=== PATIENT | female | born 1965 | race Caucasian/White ===

== ENCOUNTER 2017-03-04 13:19 | Emergency (ER) | payer BC, OTHER ==
[2017-03-04] MEDS ORDERED: Ketorolac Tromethamine 30 MG/ML VIAL ONE (14:54)
== END 2017-03-04 15:04 | disposition home or self-care (01) ==
LOC: ERS 13:19
DX: K04.7 Periapical abscess without sinus (principal); E78.5 Hyperlipidemia, unspecified; E66.9 Obesity, unspecified; I12.9 Hypertensive chronic kidney disease with stage 1 through stage 4 chronic kidney disease, or unspecified chronic kidney disease; N18.3 Chronic kidney disease, stage 3 (moderate); F32.9 Major depressive disorder, single episode, unspecified; F17.210 Nicotine dependence, cigarettes, uncomplicated
CPT/HCPCS: 96372; 99406; J1885

== ENCOUNTER 2017-04-07 03:02 | Emergency (ER) | payer OTHER ==
[2017-04-07] MEDS ORDERED: Ketorolac Tromethamine 60 MG/2 ML VIAL ONE (05:05)
== END 2017-04-07 05:32 | disposition home or self-care (01) ==
LOC: ERS 03:02
DX: M17.0 Bilateral primary osteoarthritis of knee (principal); E66.9 Obesity, unspecified; F41.9 Anxiety disorder, unspecified; F17.210 Nicotine dependence, cigarettes, uncomplicated; Z71.6 Tobacco abuse counseling
CPT/HCPCS: 96372; 99406; J1885

== ENCOUNTER 2017-05-06 12:28 | Inpatient (IN) | payer OTHER ==
[2017-05-06] MEDS ORDERED: Acetaminophen 500 MG TAB ONE (13:19)
[2017-05-06 13:28] LABS: Bilirubin Negative (Negative); Blood, Urine Large (Negative); Clarity TURBID (Clear); Glucose, Urine (Dipstick) Negative (Negative); Leukocyte Large (Negative); Nitrite Positive (Negative); Protein, Urine (Dipstick) 100 mg/dL (Neg-Trace); Specific Gravity, Urine 1.019 (1.002-1.036); pH, Urine 5.5 (5.0-9.0)
[2017-05-06 13:30] LABS: Bacteria/HPF 4+ HPF (None Seen); Hyaline Casts/LPF 4-6 HYALINE CAST LPF (0-3 Hyaline); Pathc Cast-AUWi Flag 1.14 (0-2.49); Squamous Epithelial None Seen HPF (0-3)
[2017-05-06 13:35] LABS: Yeast-AUWi Flag 248.6 (0-25.0)
[2017-05-06 13:43] LABS: RBC/HPF 0-3 HPF (0-3); Yeast-All Forms None Seen HPF (None Seen)
[2017-05-06 13:44] LABS: #Eosinphils 0.1 thou/uL (0.0-0.7); #Monocytes 0.7 thou/uL (0.11-0.59); #Neutrophils 12.6 thou/uL (1.40-6.50); %Basophils 0.1 % (0.0-1.0); %Eosinophils 0.6 % (0.0-10.0); %Lymphocytes 7.2 % (21.0-51.0); %Neutrophils 87.1 % (42.0-75.0); Hemoglobin 14.3 g/dL (12.0-16.0); Mean Corpuscular Hemoglobin 32.8 pg (27.0-31.0); Mean Corpuscular Volume 99.5 fl (81.0-99.0); Mean Platelet Volume 6.5 fL (7.4-10.4); Platelet Count 318 thou/uL (130-400); RBC Distribution Width 12.3 % (11.5-14.5); Red Blood Cell (RBC) Count 4.37 mill/uL (4.20-5.40); White Blood Cell (WBC) Count 14.4 thou/uL (4.8-10.8)
[2017-05-06] MEDS ORDERED: Phenazopyridine HCl 97.5 MG TABLET PO SCH (14:00)
[2017-05-06 14:02] LABS: ALT (SGPT) 19 U/L (8-55); AST (SGOT) 20 U/L (5-34); Albumin 4.3 g/dL (3.5-5.0); Alkaline Phosphatase 104 U/L (40-150); Anion Gap 15 mmol/L (10-20); BUN (Urea Nitrogen) 14 mg/dL (9.8-20.1); Bilirubin, Total 0.4 mg/dL (0.2-1.2); Calc. Creatinine Clearance 0 mL/min (70-130); Calcium 10.1 mg/dL (7.8-10.44); Carbon Dioxide 25 mmol/L (22-29); Chloride 103 mmol/L (98-107); Estimated GFR-MDRD 55; Globulin 3.8 g/dL (2.4-3.5); Glucose 116 mg/dL (70-105); Potassium 3.6 mmol/L (3.5-5.1); Protein, Total 8.1 g/dL (6.0-8.3); Sodium 139 mmol/L (136-145)
--- NOTE | 2017-05-06 14:47 | RAD ---
CHEST ONE VIEW: History: Fever. Comparison: 03-18-16 FINDINGS: Cardiac silhouette is magnified by projection. Pulmonary vasculature is unremarkable. Mediastinum is midline. There is no lobar consolidation or evidence of pneumothorax. IMPRESSION: No active cardiopulmonary abnormalities are demonstrated. POS: [facility]
[2017-05-06] MEDS ORDERED: Acetaminophen 325 MG TAB PO PRN (18:36)
[2017-05-06] MEDS ORDERED: traMADol HCl 50 MG TAB PO PRN ×2 (18:36→22:07)
[2017-05-06] MEDS ORDERED: Guaifenesin DM 100-10/5 ML UDCUP PO PRN (18:36)
[2017-05-06] MEDS ORDERED: cefTRIAXone\\ROCEPHIN 1 GM in Sodium Chloride 0.9% 100 ML IVPB SCH (18:45)
--- NOTE | 2017-05-06 19:01 | HP ---
REASON FOR ADMISSION: Urinary tract infection and fever of 101.7. HISTORY OF PRESENTNG ILLNESS: The patient gives history of having burning urination from the last 4 days. This has been getting worse. She developed suprapubic pain this evening. She is also getting increased frequency of urination to the point that she has become incontinent and dribbles even befo re reaching the bathroom. The patient states she has history of getting recurrent urinary tract infe ctions and the last one she had was in January. She follows up with the primary care physician out of [place], which she cannot recall the name at present. No complaints of constipation, chest monse n or shortness of breath. Had a fever of 101.7 in the ER on arrival. PAST MEDICAL AND SURGICAL HISTORY: Hypertension, dyslipidemia, anxiety disorder, tobacco abuse and c hronic back pain. CURRENT MEDICATIONS: The patient takes Klonopin 3 times daily; Pravachol 40 mg p.o. at bedtime; danish nopril, a small dose daily and Ultram p.r.n. for pain. ALLERGIES: No known drug allergies. PERSONAL HISTORY: Does not abuse alcohol or drugs. She smokes one pack a day. [facility] FAMILY HISTORY: Mother of lung cancer at the age of 67 years. Father was suspected to have men ingitis and in his 50s. REVIEW OF SYSTEMS: The following complete review of systems was negative, unless otherwise mentioned in the HPI or below: Constitutional: Weight loss or gain, ability to conduct usual activities. Skin: Rash, itching. Eyes: Double vision, pain. ENT/Mouth: Nose bleeding, neck stiffness, pain, tenderness. Cardiovascular: Palpitations, dyspnea on exertion, orthopnea. Respiratory: Shortness of breath, wheezing, cough, hemoptysis, fever or night sweats. Gastrointestinal: Poor appetite, abdominal pain, heartburn, nausea, vomiting, constipation, or diarr hea. Genitourinary: Urgency, frequency, dysuria, nocturia. Musculoskeletal: Pain, swelling. Neurologic/Psychiatric: Anxiety, depression. Allergy/Immunologic: Skin rash, bleeding tendency. PHYSICAL EXAMINATION: GENERAL: The patient is a 52-year-old female who is currently not in any acute distress. VITAL SIGNS: Blood pressure 146/70, pulse 120 per minute, respiratory rate 18 per minute, temperatur e 101.9 degrees Fahrenheit and saturating 95% on room air. NECK: Supple. No elevated JVD. HEENT: Eyes: Extraocular muscles intact. Pupils are reacting to light. Oral cavity mucous membran es are dry. No exudates or congestion. CARDIOVASCULAR SYSTEM: S1 and S2 heard. Regular rhythm. RESPIRATORY SYSTEM: Air entry 1+ bilaterally. No rales, rhonchi plus bilateral. ABDOMEN: Soft, bowel sounds heard. Mild tenderness in the suprapubic area, otherwise no rigidity or guarding. There is no CVA angle tenderness. EXTREMITIES: No peripheral edema or calf tenderness. VASCULAR SYSTEM: Peripheral pulses 2+ bilateral. No ischemic ulcerations or gangrene. CENTRAL NERVOUS SYSTEM: No gross focal deficits seen. The patient is alert, awake and oriented well . PSYCHIATRIC SYSTEM: The patient's mood is euthymic. No hallucinations or delusions. LABORATORY AND X-RAY FINDINGS: EKG done shows sinus tachycardia at 122 beats per minute. There is R BBB seen. White count of 14, hemoglobin and hematocrit 14 and 43, platelet count 318 with 87% neutro phils and MCV is 99. Electrolytes are stable. BUN 14, creatinine 1.0 and glucose 116. Liver enzyme s are within normal limits. Albumin is 4.3. UA shows positive nitrite, large leukocyte esterase and greater than 50 wbc's and 4+ bacteria. Influenza A and B antigens are negative. Chest x-ray shows no acute cardiopulmonary abnormalities. CLINICAL IMPRESSION AND PLAN: The patient will be admitted to medical floor for sepsis, urinary trac t infection. She will be placed on ceftriaxone and Levaquin. Ann cultures have been obtained in the ER including blood and urine. In view of recurrent UTIs, we will obtain a CT stone protocol to rule out obstructive uropathy. We will continue her Pravachol, lisinopril, Ultram as before and nicotine patch for her history of tobacco abuse. Continue Klonopin as well for anxiety. Continue to closely monitor her in the medical floor.
[2017-05-06] MEDS ORDERED: cefTRIAXone\\ROCEPHIN 1 GM, Syringe 0.4 ML in Sterile Water 9.6 ML SLOW IVP SCH (20:00)
--- NOTE | 2017-05-06 20:22 | CT ---
ABDOMEN AND PELVIC CT NONCONTRAST: Comparison: 01-20-12 Clinical history: History of obstructive uropathy and recurrent urinary tract infections. FINDINGS: There is abnormal wall thickening of the urinary bladder with perivesicular fat stranding. Punctate n onobstructive left nephrolithiasis is present. No right side urolithiasis evident. Scattered vascular calcification is present. There is fatty infiltration of the liver. The solid abdominal viscera, bow el and vascular system is limited in assessment on the basis of noncontrast technique. No lobar conso lidation or effusion at the imaged lung bases. Osseous structures are non-acute in appearance. Modera te retained fecal material in the colon. IMPRESSION: 1. CT findings indicate cystitis. Correlate with urinary laboratory values. 2. Nonobstructive left nephrolithiasis. 3. Evaluation otherwise limited on basis of noncontrast study. POS: [facility]
[2017-05-06] MEDS ORDERED: clonazePAM 0.5 MG TAB PO SCH ×2 (21:00→22:15)
[2017-05-06] MEDS: Sodium Chloride 0.9% 1,000 ML IV SCH (21:05)
[2017-05-06] MEDS: Pravastatin Sodium 20 MG TAB PO SCH (21:06)
[2017-05-06] MEDS: Nicotine 21 MG PATCH TD SCH (21:06)
[2017-05-06] MEDS: Famotidine 20 MG TAB PO SCH (21:06)
[2017-05-06] MEDS: Docusate 100 MG CAP PO SCH (21:06)
[2017-05-06 21:11] VITALS: BMI 34.0
[2017-05-07] MEDS ORDERED: Loperamide HCl 2 MG CAP PO PRN (01:05)
[2017-05-07] MEDS: traMADol HCl 50 MG TAB PO PRN ×4 (02:28→23:45)
[2017-05-07 04:57] LABS: Band 14 % (5-11); Hemoglobin 11.6 g/dL (12.0-16.0); Lymphocytes 23 % (21-51); MDiff Complete? YES; Mean Corpuscular Hemoglobin 32.8 pg (27.0-31.0); Mean Corpuscular Volume 99.2 fl (81.0-99.0); Mean Platelet Volume 6.7 fL (7.4-10.4); Monocytes 5 % (0-10); Neutrophil 58 % (42-75); Platelet Count 262 thou/uL (130-400); RBC Distribution Width 12.1 % (11.5-14.5); Red Blood Cell (RBC) Count 3.54 mill/uL (4.20-5.40); White Blood Cell (WBC) Count 10.1 thou/uL (4.8-10.8)
[2017-05-07 05:02] LABS: Calcium 8.4 mg/dL (7.8-10.44)
[2017-05-07 05:03] LABS: Anion Gap 11 mmol/L (10-20); BUN (Urea Nitrogen) 9 mg/dL (9.8-20.1); Calc. Creatinine Clearance 141 mL/min (70-130); Carbon Dioxide 23 mmol/L (22-29); Chloride 105 mmol/L (98-107); Estimated GFR-MDRD 79; Glucose 122 mg/dL (70-105); Sodium 136 mmol/L (136-145)
[2017-05-07] MEDS: Famotidine 20 MG TAB PO SCH ×2 (08:30→19:54)
[2017-05-07] MEDS: Lisinopril 2.5 MG TAB PO SCH (08:30)
[2017-05-07] MEDS: Enoxaparin Sodium 40 MG/0.4 ML SYRINGE SC SCH (08:32)
[2017-05-07] MEDS: Docusate 100 MG CAP PO SCH ×2 (08:33→19:54)
[2017-05-07] MEDS ORDERED: Nicotine 21 MG PATCH TD SCH (09:00)
[2017-05-07] MEDS ORDERED: FLU VACC QS2017-18 36 mo. & older 0.5 ML SYRINGE IM ONE (09:00)
--- NOTE | 2017-05-07 12:10 | PDOC.PN ---
- Subjective Encounter Start Date: 05/07/17 Encounter Start Time: 10:00 -: old records requested/rev Patient seen and examined. No new complaints. No overnight events - Objective Resuscitation Status: Resuscitation Status FULL:Full Resuscitation MAR Reviewed: Yes Vital Signs & Weight: Vital Signs (12 hours) Temp Pulse Resp BP BP Pulse Ox 05/07/17 08:30 99 154/94 H 05/07/17 08:00 98.0 F 99 18 96 05/07/17 04:52 98.0 F 99 18 138/74 95 Weight Weight 230 lb I&O: 05/06/17 05/07/17 05/08/17 06:59 06:59 06:59 Intake Total 1820 240 Balance 1820 240 Result Diagrams: 05/07/17 03:58 05/07/17 03:58 Phys Exam - Physical Examination Constitutional: NAD HEENT: PERRLA, moist MMs, sclera anicteric Neck: no JVD, supple Respiratory: no wheezing, no rales, no rhonchi Cardiovascular: RRR, no significant murmur, no rub Gastrointestinal: soft, no distention, positive bowel sounds suprapubic discomfort Musculoskeletal: no edema, pulses present Neurological: non-focal, normal sensation, moves all 4 limbs Psychiatric: normal affect, A&O x 3 Skin: no rash, normal turgor Dx/Plan (1) Sepsis Code(s): A41.9 - SEPSIS, UNSPECIFIED ORGANISM Status: Acute (2) Acute cystitis Code(s): N30.00 - ACUTE CYSTITIS WITHOUT HEMATURIA Status: Acute (3) Anxiety and depression Code(s): F41.8 - OTHER SPECIFIED ANXIETY DISORDERS Status: Chronic (4) Tobacco abuse Code(s): Z72.0 - TOBACCO USE Status: Chronic (5) Obesity (BMI 30.0-34.9) Code(s): E66.9 - OBESITY, UNSPECIFIED Status: Chronic (6) HTN (hypertension) Code(s): I10 - ESSENTIAL (PRIMARY) HYPERTENSION Status: Chronic (7) Dyslipidemia Code(s): E78.5 - HYPERLIPIDEMIA, UNSPECIFIED Status: Chronic - Plan cont current plan of care, continue antibiotics * overall doing well * continue rocephin and levaquin * follow culture result * DC IVF * ambulate as tolerated * counselled to avoid smoking * selected home medication * medication reviewed as below * symptomatic treatment * medication reviewed as below * symptomatic treatment. Review of Systems - Review of Systems ENT: negative: Ear Pain, Ear Discharge, Nose Pain, Nose Discharge, Nose Congestion, Mouth Pain, Mouth Swelling, Throat Pain, Throat Swelling, Other Respiratory: negative: Cough, Dry, Shortness of Breath, Hemoptysis, SOB with Excertion, Pleuritic Pain, Sputum, Wheezing Cardiovascular: negative: chest pain, palpitations, orthopnea, paroxysmal nocturnal dyspnea, edema, light headedness, other Gastrointestinal: negative: Nausea, Vomiting, Abdominal Pain, Diarrhea, Constipation, Melena, Hematochezia, Other Genitourinary: negative: Dysuria, Frequency, Incontinence, Hematuria, Retention , Other Musculoskeletal: negative: Neck Pain, Shoulder Pain, Arm Pain, Back Pain, Hand Pain, Leg Pain, Foot Pain, Other Skin: negative: Rash, Lesions, Calvin, Bruising, Other - Medications/Allergies Allergies/Adverse Reactions: Allergies Allergy/AdvReac Type Severity Reaction Status Date / Time No Known Drug Allergies Allergy Verified 05/06/17 21:17 Medications: Current Medications Acetaminophen (Tylenol) 650 mg PO Q4H PRN PRN Reason: Headache/Fever or Pain Clonazepam (Klonopin) 1 mg PO HS [facility] Docusate Sodium (Colace) 100 mg PO BID [facility] Last Admin: 05/07/17 08:33 Dose: Not Given Enoxaparin Sodium (Lovenox) 40 mg SC 0900 [facility] Last Admin: 05/07/17 08:32 Dose: 40 mg Famotidine (Pepcid) 20 mg PO BID [facility] Last Admin: 05/07/17 08:30 Dose: 20 mg Guaifenesin/Dextromethorphan (Robitussin Dm) 15 ml PO Q4H PRN PRN Reason: Cough Levofloxacin 500 mg/ Device 100 mls @ 100 mls/hr IVPB 2000 [facility] Last Admin: 05/06/17 21:05 Dose: 100 mls Sodium Chloride (Normal Saline 0.9%) 1,000 mls @ 80 mls/hr IV .[id number] [facility] Last Admin: 05/06/17 21:05 Dose: 1,000 mls Ceftriaxone Sodium 1 gm/ (Syringe 0.4 ml/ Sterile Water) 10 mls @ 120 mls/hr SLOW IVP 1600 [facility] Lisinopril (Zestril) 2.5 mg PO DAILY [facility] Last Admin: 05/07/17 08:30 Dose: 2.5 mg Loperamide HCl (Imodium) 2 mg PO PRN PRN PRN Reason: Diarrhea/Loose Stools Nicotine (Nicoderm Patch) 21 mg TD Q24HR [facility] Last Admin: 05/06/17 21:06 Dose: 21 mg Pravastatin Sodium (Pravachol) 20 mg PO HS [facility] Last Admin: 05/06/17 21:06 Dose: 20 mg Tramadol HCl (Ultram) 50 mg PO QIDPRN PRN PRN Reason: Moderate Pain (4-6) Tramadol HCl (Ultram) 100 mg PO QIDPRN PRN PRN Reason: Severe Pain (7-10) Last Admin: 05/07/17 08:28 Dose: 100 mg
[2017-05-07] MEDS: Sodium Chloride 0.9% 1,000 ML IV SCH (12:17)
[2017-05-07] MEDS: clonazePAM 0.5 MG TAB PO SCH (15:26)
[2017-05-07] MEDS ORDERED: cefTRIAXone\\ROCEPHIN 1 GM, Syringe 0.4 ML in Sterile Water 9.6 ML SLOW IVP SCH (16:00)
[2017-05-07] MEDS: Nicotine 21 MG PATCH TD SCH (19:54)
[2017-05-07] MEDS: Pravastatin Sodium 20 MG TAB PO SCH (19:55)
[2017-05-07] MEDS ORDERED: clonazePAM 1 MG TAB PO SCH ×2 (21:00)
[2017-05-07] MEDS ORDERED: Montelukast Sodium 10 mg Tablet PO SCH (21:00)
[2017-05-08] MEDS: clonazePAM 0.5 MG TAB PO SCH (08:20)
[2017-05-08] MEDS: Enoxaparin Sodium 40 MG/0.4 ML SYRINGE SC SCH (08:20)
[2017-05-08] MEDS: Lisinopril 2.5 MG TAB PO SCH (08:20)
[2017-05-08] MEDS: Famotidine 20 MG TAB PO SCH (08:21)
[2017-05-08] MEDS: Docusate 100 MG CAP PO SCH (08:21)
[2017-05-08] MEDS: traMADol HCl 50 MG TAB PO PRN (08:24)
[2017-05-08] MEDS ORDERED: busPIRone HCl 5 MG TAB PO SCH (09:00)
[2017-05-08 09:49] VITALS: TEMP 98.2
--- NOTE | 2017-05-08 10:17 | DIS ---
DATE OF ADMISSION: 05/06/2017 DATE OF DISCHARGE: 05/08/2017 PRIMARY CARE PHYSICIAN: [facility] call admission. DISCHARGE DISPOSITION: Home. PRIMARY DISCHARGE DIAGNOSES: 1. Sepsis. 2. Acute cystitis. SECONDARY DISCHARGE DIAGNOSES: Tobacco abuse disorder, obesity with BMI 34, hypertension, dyslipidem ia, anxiety and depression. PRIMARY PROCEDURE/OPERATION: None. RADIOLOGICAL INVESTIGATION: Chest x-ray normal. Abdomen and pelvis CT scan showed cystitis. SIGNIFICANT LABORATORY: WBC 10.1, hemoglobin 11.6, platelets 262. Sodium 136, potassium 3.0, BUN 9, creatinine 0.77, calcium 8.4. LFTs normal. Urinalysis suggestive of UTI. Urine culture grew E. co li. Blood culture negative, influenza negative. DISCHARGE MEDICATIONS: Buspirone 5 mg p.o. daily, clonazepam 0.5 mg p.o. daily, clonazepam 0.5 mg p. o. b.i.d. lisinopril 2.5 mg p.o. daily, Singulair 10 mg p.o. daily, pravastatin 20 mg p.o. at bedtime , tramadol 100 mg q.i.d. p.r.n. CONTRAINDICATIONS: None. CODE STATUS: FULL CODE. INPATIENT CONSULTANTS: None. ALLERGIES: No known drug allergies. DISCHARGE PLAN: Post hospital, the patient will follow up with primary care physician. HOSPITAL COURSE: A 52-year-old female who was admitted by Dr. Moreno on 05/06/2007. The patien t was admitted for sepsis. Her source of infection was urinary tract infection. Her CT of the abdom en and pelvis showed cystitis. Her urinalysis was consistent with UTI. She was afebrile in the [facility] room and she was meeting sepsis criteria and she was having suprapubic discomfort. The patient was admitted to medical floor, and she was treated with IV fluids, Rocephin, and Levaquin . The patient had significant improvement. Next day, we discontinued the IV fluid and continue with antibiotic therapy. On discharge, based on culture and sensitivity result, we changed to oral cipro floxacin. The patient is going outside for smoking while in hospital despite nicotine patch and that is why we provided counseling to avoid smoking. At this point, the patient is afebrile, tolerating p.o. well and ambulatory. The patient is medicall y stable for discharge on above-mentioned medications. The patient is seen and examined at bedside today. PHYSICAL EXAMINATION: VITAL SIGNS: Currently, temperature 98.2, pulse 101, respiratory rate 18, saturation 97% on room air , blood pressure 151/92, weight 238 pounds. GENERAL: The patient is currently alert, awake, no acute distress. HEAD: Normocephalic, atraumatic. EYES: Pupils round, reactive to light. Extraocular muscles intact. ENT: Oropharynx within normal limits. Moist mucous membranes. No oral lesions. No pharyngeal eryt estefanía, no exudate. NECK: Supple, no JVD, no thyromegaly, no carotid bruit. No jugular venous distention. LUNGS: Clear to auscultation without any rhonchi or rales. CARDIAC: S1, S2 regular without any murmur. ABDOMEN: Soft and benign without any tenderness. EXTREMITIES: No edema. NEUROLOGIC: Nonfocal examination. The patient is medically stable for discharge today.
--- NOTE | 2017-05-08 11:06 | PDOC.PN ---
- Subjective Encounter Start Date: 05/08/17 Encounter Start Time: 10:20 Patient seen and examined. No new complaints. No overnight events - Objective Resuscitation Status: Resuscitation Status FULL:Full Resuscitation MAR Reviewed: Yes Vital Signs & Weight: Vital Signs (12 hours) Temp Pulse Resp BP Pulse Ox 05/08/17 08:00 98.2 F 101 H 18 151/92 H 97 Weight Weight 230 lb I&O: 05/07/17 05/08/17 05/09/17 06:59 06:59 06:59 Intake Total 1820 1292 Balance 1820 1292 Result Diagrams: 05/07/17 03:58 05/07/17 03:58 Phys Exam - Physical Examination Constitutional: NAD HEENT: PERRLA, moist MMs, sclera anicteric Neck: no JVD, supple Respiratory: no wheezing, no rales, no rhonchi Cardiovascular: RRR, no significant murmur, no rub Gastrointestinal: soft, non-tender, no distention, positive bowel sounds Musculoskeletal: no edema, pulses present Neurological: non-focal, normal sensation, moves all 4 limbs Psychiatric: normal affect, A&O x 3 Skin: no rash, normal turgor Dx/Plan (1) Sepsis Code(s): A41.9 - SEPSIS, UNSPECIFIED ORGANISM Status: Acute (2) Acute cystitis Code(s): N30.00 - ACUTE CYSTITIS WITHOUT HEMATURIA Status: Acute (3) Anxiety and depression Code(s): F41.8 - OTHER SPECIFIED ANXIETY DISORDERS Status: Chronic (4) Tobacco abuse Code(s): Z72.0 - TOBACCO USE Status: Chronic (5) Obesity (BMI 30.0-34.9) Code(s): E66.9 - OBESITY, UNSPECIFIED Status: Chronic (6) HTN (hypertension) Code(s): I10 - ESSENTIAL (PRIMARY) HYPERTENSION Status: Chronic (7) Dyslipidemia Code(s): E78.5 - HYPERLIPIDEMIA, UNSPECIFIED Status: Chronic - Plan cont current plan of care, continue antibiotics * medication reviewed as below * symptomatic treatment * see discharge smitha. Review of Systems - Review of Systems ENT: negative: Ear Pain, Ear Discharge, Nose Pain, Nose Discharge, Nose Congestion, Mouth Pain, Mouth Swelling, Throat Pain, Throat Swelling, Other Respiratory: negative: Cough, Dry, Shortness of Breath, Hemoptysis, SOB with Excertion, Pleuritic Pain, Sputum, Wheezing Cardiovascular: negative: chest pain, palpitations, orthopnea, paroxysmal nocturnal dyspnea, edema, light headedness, other Gastrointestinal: negative: Nausea, Vomiting, Abdominal Pain, Diarrhea, Constipation, Melena, Hematochezia, Other Genitourinary: negative: Dysuria, Frequency, Incontinence, Hematuria, Retention , Other Musculoskeletal: negative: Neck Pain, Shoulder Pain, Arm Pain, Back Pain, Hand Pain, Leg Pain, Foot Pain, Other Skin: negative: Rash, Lesions, Calvin, Bruising, Other - Medications/Allergies Allergies/Adverse Reactions: Allergies Allergy/AdvReac Type Severity Reaction Status Date / Time No Known Drug Allergies Allergy Verified 05/06/17 21:17 Medications: Current Medications Acetaminophen (Tylenol) 650 mg PO Q4H PRN PRN Reason: Headache/Fever or Pain Buspirone HCl (Buspar) 5 mg PO DAILY [facility] Last Admin: 05/08/17 08:20 Dose: 5 mg Clonazepam (Klonopin) 0.5 mg PO 0900,1500 [facility] Last Admin: 05/08/17 08:20 Dose: 0.5 mg Clonazepam (Klonopin) 1 mg PO HS [facility] Last Admin: 05/07/17 19:55 Dose: 1 mg Docusate Sodium (Colace) 100 mg PO BID [facility] Last Admin: 05/08/17 08:21 Dose: Not Given Enoxaparin Sodium (Lovenox) 40 mg SC 0900 [facility] Last Admin: 05/08/17 08:20 Dose: 40 mg Famotidine (Pepcid) 20 mg PO BID [facility] Last Admin: 05/08/17 08:21 Dose: 20 mg Guaifenesin/Dextromethorphan (Robitussin Dm) 15 ml PO Q4H PRN PRN Reason: Cough Levofloxacin 500 mg/ Device 100 mls @ 100 mls/hr IVPB 2000 [facility] Last Admin: 05/07/17 19:53 Dose: 100 mls Ceftriaxone Sodium 1 gm/ (Syringe 0.4 ml/ Sterile Water) 10 mls @ 120 mls/hr SLOW IVP 1600 [facility] Last Admin: 05/07/17 17:25 Dose: 10 mls Lisinopril (Zestril) 2.5 mg PO DAILY [facility] Last Admin: 05/08/17 08:20 Dose: 2.5 mg Loperamide HCl (Imodium) 2 mg PO PRN PRN PRN Reason: Diarrhea/Loose Stools Montelukast Sodium (Singulair) 10 mg PO HS [facility] Last Admin: 05/07/17 19:54 Dose: 10 mg Nicotine (Nicoderm Patch) 21 mg TD Q24HR [facility] Last Admin: 05/07/17 19:54 Dose: 21 mg Pravastatin Sodium (Pravachol) 20 mg PO [facility] Last Admin: 05/07/17 19:55 Dose: 20 mg Tramadol HCl (Ultram) 50 mg PO QIDPRN PRN PRN Reason: Moderate Pain (4-6) Tramadol HCl (Ultram) 100 mg PO QIDPRN PRN PRN Reason: Severe Pain (7-10) Last Admin: 05/08/17 08:24 Dose: 100 mg
[2017-05-08 11:09] VITALS: BP 131/88
== END 2017-05-08 11:10 | disposition home or self-care (01) | DRG 872 ==
LOC: ERS 12:28 → T4-A 17:25
PROVIDERS: ADMIT Internal Medicine; ATTEND Internal Medicine
DX: A41.9 Sepsis, unspecified organism (principal); N30.90 Cystitis, unspecified without hematuria; F17.210 Nicotine dependence, cigarettes, uncomplicated; E66.9 Obesity, unspecified; Z68.34 Body mass index [BMI] 34.0-34.9, adult; I10 Essential (primary) hypertension; E78.5 Hyperlipidemia, unspecified; F41.9 Anxiety disorder, unspecified; F32.9 Major depressive disorder, single episode, unspecified
CPT/HCPCS: 36415; 71045; 74176; 80048; 80053; 81003; 81015; 83605; 85007; 85025; 85027; 87040; 87077; 87086; 87186; 90471; 90682; 90732; 93005; 96361; 96365; 99406; A4216; G0008; G0009; J0696; J1650; J1956; Q2036

== ENCOUNTER 2017-06-10 16:51 | Emergency (ER) | payer OTHER ==
--- NOTE | 2017-06-10 17:50 | RAD ---
3 VIEWS RIGHT HAND: Date: 06/10/17 HISTORY: Patient tripped and fell 30 minutes prior to arrival. Injury to right hand after the fall. FINDINGS: There is mild osteoarthritis involving the interphalangeal joints. No fracture or dislocation is seen . Metallic artifact (external jewelry) overlies the proximal phalanx of the right ring finger. No oth er findings. IMPRESSION: Mild osteoarthritis interphalangeal joints, but no acute osseous abnormality is seen involving the ri ght hand. POS: [facility]
--- NOTE | 2017-06-10 17:51 | RAD ---
4 VIEWS RIGHT ELBOW: Date: 06/10/17 HISTORY: Patient tripped and fell. Right elbow pain after fall. FINDINGS: There is osteoarthritis involving the right elbow. No fracture or dislocation is identified. IMPRESSION: Degenerative changes about the right elbow, but no acute osseous abnormality is seen. POS: [facility]
--- NOTE | 2017-06-10 17:51 | RAD ---
2 VIEWS RIGHT FOREARM: Date: 06/10/17 HISTORY: Right elbow pain after falling. Injury after fall. FINDINGS: There are degenerative changes seen involving the right elbow. No fracture or dislocation is seen inv olving the right forearm. No other findings. IMPRESSION: No acute osseous abnormality of right forearm. POS: [facility]
--- NOTE | 2017-06-10 18:04 | RAD ---
3 VIEWS LUMBAR SPINE: Date: 06/10/17 HISTORY: Patient tripped and fell 30 minutes prior to arrival. Back pain. FINDINGS: There are five non-rib bearing lumbar-type vertebral bodies. There is narrowing of the L4-5 and L5-S1 intervertebral disc spaces. Vertebral body heights are within normal limits. No fracture or subluxat ion is seen. Facet degenerative changes are present. There is mild left convex curvature thoracolumba r spine. IMPRESSION: 1. No acute fracture visualized. Views of the lumbar spine are similar to the study on 12/25/15. 2. Vascular calcifications in the abdominal aorta. POS: [facility]
== END 2017-06-10 18:22 | disposition home or self-care (01) ==
LOC: ERS 16:51
DX: S33.5XXA Sprain of ligaments of lumbar spine, initial encounter (principal); S50.01XA Contusion of right elbow, initial encounter; E78.5 Hyperlipidemia, unspecified; E66.9 Obesity, unspecified; I12.9 Hypertensive chronic kidney disease with stage 1 through stage 4 chronic kidney disease, or unspecified chronic kidney disease; N18.9 Chronic kidney disease, unspecified; F32.9 Major depressive disorder, single episode, unspecified; F17.210 Nicotine dependence, cigarettes, uncomplicated; W10.9XXA Fall (on) (from) unspecified stairs and steps, initial encounter
CPT/HCPCS: 72100; 99406

== ENCOUNTER 2019-08-06 00:30 | Emergency (ER) | payer SELFPAY ==
[2019-08-06] MEDS ORDERED: Ketorolac Tromethamine 30 MG/ML VIAL ONE (01:57)
== END 2019-08-06 02:02 | disposition home or self-care (01) ==
LOC: ERS 00:30
DX: M54.42 Lumbago with sciatica, left side (principal); E78.5 Hyperlipidemia, unspecified; I12.9 Hypertensive chronic kidney disease with stage 1 through stage 4 chronic kidney disease, or unspecified chronic kidney disease; N18.9 Chronic kidney disease, unspecified; F32.9 Major depressive disorder, single episode, unspecified; F17.210 Nicotine dependence, cigarettes, uncomplicated; Z79.899 Other long term (current) drug therapy
CPT/HCPCS: 96372; 99283; J1885

== ENCOUNTER 2020-06-30 16:10 | Emergency (ER) | payer OTHER, SELFPAY | END 2020-06-30 18:35 | disposition home or self-care (01) | LOC: ERS 16:10 | DX: S20.221A Contusion of right back wall of thorax, initial encounter (principal); E78.5 Hyperlipidemia, unspecified; E78.00 Pure hypercholesterolemia, unspecified; N18.9 Chronic kidney disease, unspecified; I12.9 Hypertensive chronic kidney disease with stage 1 through stage 4 chronic kidney disease, or unspecified chronic kidney disease; F17.210 Nicotine dependence, cigarettes, uncomplicated; V89.2XXA Person injured in unspecified motor-vehicle accident, traffic, initial encounter | CPT/HCPCS: 71046 ==

== ENCOUNTER 2020-12-24 12:16 | Emergency (ER) | payer SELFPAY ==
[2020-12-24] MEDS ORDERED: cefTRIAXone\\ROCEPHIN 1 GM VIAL ONE (13:52)
[2020-12-24] MEDS ORDERED: Lidocaine 1% PF 5 ML VIAL ONE (13:53)
== END 2020-12-24 14:14 | disposition home or self-care (01) ==
LOC: ERS 12:16
DX: L03.115 Cellulitis of right lower limb (principal); Z79.899 Other long term (current) drug therapy; Z79.52 Long term (current) use of systemic steroids; E78.5 Hyperlipidemia, unspecified; E78.00 Pure hypercholesterolemia, unspecified; I12.9 Hypertensive chronic kidney disease with stage 1 through stage 4 chronic kidney disease, or unspecified chronic kidney disease; N18.9 Chronic kidney disease, unspecified
CPT/HCPCS: 96372; J0696

== ENCOUNTER 2022-05-30 14:10 | Emergency (ER) | payer SELFPAY ==
[2022-05-30 16:15] LABS: #Eosinphils 0.2 thou/uL (0.0-0.7); #Monocytes 0.4 thou/uL (0.11-0.59); #Neutrophils 5.7 thou/uL (1.40-6.50); %Basophils 0.4 % (0.0-1.0); %Eosinophils 2.4 % (0.0-10.0); %Lymphocytes 23.9 % (21.0-51.0); %Monocytes 4.8 % (0.0-10.0); %Neutrophils 68.6 % (42.0-75.0); Hemoglobin 13.8 g/dL (12.0-16.0); Mean Corpuscular HGB CONC 33.3 g/dL (32.0-36.0); Mean Corpuscular Hemoglobin 32.6 pg (27.0-31.0); Mean Corpuscular Volume 97.8 fl (78.0-98.0); Mean Platelet Volume 7.7 fL (7.4-10.4); Platelet Count 331 10x3/uL (130-400); RBC Distribution Width 12.5 % (11.5-14.5); Red Blood Cell (RBC) Count 4.24 mill/uL (4.20-5.40); White Blood Cell (WBC) Count 8.4 10x3/uL (4.8-10.8)
[2022-05-30 16:42] LABS: ALT (SGPT) 12 U/L (8-55); AST (SGOT) 16 U/L (5-34); Albumin 3.8 g/dL (3.5-5.0); Alkaline Phosphatase 101 U/L (40-110); Anion Gap 15 mmol/L (10-20); BUN (Urea Nitrogen) 16 mg/dL (9.8-20.1); Bilirubin, Total 0.3 mg/dL (0.2-1.2); Calc. Creatinine Clearance 0 mL/min (70-130); Calcium 10.1 mg/dL (7.8-10.44); Carbon Dioxide 25 mmol/L (22-29); Chloride 102 mmol/L (98-107); Estimated GFR 77; Globulin 4.2 g/dL (2.4-3.5); Glucose 114 mg/dL (70-105); Potassium 4.1 mmol/L (3.5-5.1); Sodium 138 mmol/L (136-145)
[2022-05-30] MEDS ORDERED: Clindamycin 150 MG CAP ONE (16:44)
== END 2022-05-30 16:52 | disposition home or self-care (01) ==
LOC: ERS 14:10
DX: N61.0 Mastitis without abscess (principal); E78.00 Pure hypercholesterolemia, unspecified; I12.9 Hypertensive chronic kidney disease with stage 1 through stage 4 chronic kidney disease, or unspecified chronic kidney disease; N18.6 End stage renal disease; F17.210 Nicotine dependence, cigarettes, uncomplicated
CPT/HCPCS: 36415; 80053; 85025; 99283; J3490

== ENCOUNTER 2023-04-15 12:13 | Inpatient (IN) | payer SELFPAY ==
[2023-04-15 12:44] LABS: #Eosinphils 0.1 thou/uL (0.0-0.7); #Monocytes 0.6 thou/uL (0.11-0.59); #Neutrophils 8.4 thou/uL (1.40-6.50); %Basophils 0.2 % (0.0-1.0); %Eosinophils 0.7 % (0.0-10.0); %Lymphocytes 13.1 % (21.0-51.0); %Monocytes 5.8 % (0.0-10.0); %Neutrophils 79.9 % (42.0-75.0); Hematocrit 40.6 % (36.0-47.0); Hemoglobin 13.7 g/dL (12.0-16.0); Mean Corpuscular HGB CONC 33.7 g/dL (32.0-36.0); Mean Corpuscular Hemoglobin 31.7 pg (27.0-31.0); Mean Platelet Volume 8.8 fL (7.4-10.4); Platelet Count 293 10x3/uL (130-400); RBC Distribution Width 13.7 % (11.5-14.5); Red Blood Cell (RBC) Count 4.32 mill/uL (4.20-5.40); White Blood Cell (WBC) Count 10.6 10x3/uL (4.8-10.8)
[2023-04-15] MEDS ORDERED: Vancomycin 1 GM/200 ML (FROZEN) BAG ONE (12:45)
[2023-04-15] MEDS ORDERED: Vancomycin HCl 500 MG VIAL ONE (12:45)
[2023-04-15] MEDS ORDERED: Cefepime 2 GM VIAL ONE (12:45)
[2023-04-15] MEDS ORDERED: Ipratropium/Albuterol 3 ML NEB ONE (12:45)
[2023-04-15] MEDS ORDERED: methylPREDNISolone Sod Succ/PF 125 MG/2 ML VIAL ONE (12:46)
[2023-04-15] MEDS ORDERED: Sodium Chloride 0.9% 100 ML ONE (12:46)
[2023-04-15] MEDS ORDERED: Sodium Chloride 0.9% 250 ML 250 ML ONE (12:47)
[2023-04-15 13:10] LABS: Troponin I Less than 0.010 ng/mL (< 0.028)
[2023-04-15 13:15] LABS: ALT (SGPT) 12 U/L (8-55); AST (SGOT) 16 U/L (5-34); Albumin 4.1 g/dL (3.5-5.0); Alkaline Phosphatase 131 U/L (40-110); Anion Gap 17 mmol/L (10-20); BUN (Urea Nitrogen) 9 mg/dL (9.8-20.1); Bilirubin, Total 0.3 mg/dL (0.2-1.2); Calc. Creatinine Clearance 0 mL/min (70-130); Calcium 9.5 mg/dL (7.8-10.44); Carbon Dioxide 22 mmol/L (22-29); Chloride 99 mmol/L (98-107); Estimated GFR 65; Globulin 4.5 g/dL (2.4-3.5); Glucose 183 mg/dL (70-105); Magnesium 1.8 mg/dL (1.6-2.6); Potassium 3.4 mmol/L (3.5-5.1); Protein, Total 8.6 g/dL (6.0-8.3); Sodium 135 mmol/L (136-145)
[2023-04-15] MEDS ORDERED: Acetaminophen 650 MG Suppository PR PRN (13:48)
[2023-04-15] MEDS ORDERED: Ondansetron PF 4 MG/2 ML Vial IVP PRN (13:48)
[2023-04-15] MEDS ORDERED: Ondansetron ODT 4 MG TAB PO PRN (13:48)
[2023-04-15] MEDS ORDERED: Acetaminophen 325 MG TAB PO PRN (13:48)
[2023-04-15] MEDS ORDERED: Albuterol 2.5 MG (3 mL) NEB NEB PRN (14:30)
[2023-04-15] MEDS ORDERED: Sodium Chloride 0.9% 1,000 ML IV SCH (14:30)
[2023-04-15] MEDS ORDERED: Electrolyte Replacement Protocol 1 EACH FS SCH (14:30)
[2023-04-15] MEDS ORDERED: Potassium Chloride 20 MEQ TAB PO SCH ×2 (14:30→21:00)
[2023-04-15] MEDS ORDERED: Magnesium 2 GM/50 ML(in water) 2 GM in Premix 1 BAG IVPB SCH (14:45)
[2023-04-15 15:00] LABS: SARS-CoV-2 NAA Rapid Test Not Detected (NotDetected)
[2023-04-15 15:55] LABS: Bilirubin Negative (Negative); Blood, Urine 3+ (Negative); CAUTI Indications for Culture Fever or rigors; Clarity Clear (Clear); Glucose, Urine (Dipstick) Normal (Negative); Ketone, Urine Negative (Negative); Leukocyte Negative Leu/uL (Negative); Nitrite Negative (Negative); Protein, Urine (Dipstick) 20 mg/dL (Neg-Trace); Specific Gravity, Urine 1.007 (1.002-1.036); Squamous Epithelial 0-3 HPF (0-3); Urobilinogen Normal mg/dL (Less than 2); WBC/HPF 0-3 HPF (0-3)
[2023-04-15 15:57] LABS: Bacteria/HPF 1+ HPF (None Seen)
[2023-04-15 15:59] LABS: Urine Culture Reflex No No
[2023-04-15] MEDS ORDERED: Enoxaparin 40 MG (0.4 mL) SYRINGE SC SCH (16:00)
[2023-04-15 17:12] VITALS: BMI 33.1
[2023-04-15] MEDS ORDERED: Vancomycin HCl 500 MG in Sodium Chloride 0.9% 100 ML IVPB SCH (17:30)
[2023-04-15] MEDS: methylPREDNISolone Sod Succ 40 MG VIAL IVP SCH ×2 (18:07→23:44)
[2023-04-15] MEDS: Ipratropium/Albuterol 3 ML NEB NEB SCH (18:41)
[2023-04-15] MEDS: Arformoterol 15 MCG/2 ML NEB NEB SCH (18:43)
[2023-04-15 19:33] LABS: Troponin I Less than 0.010 ng/mL (< 0.028)
[2023-04-15 19:52] LABS: Troponin I 0.013 ng/mL (< 0.028)
[2023-04-15 20:12] LABS: Potassium 3.4 mmol/L (3.5-5.1)
[2023-04-15] MEDS ORDERED: Vancomycin 1 GM in Premix 1 BAG IVPB SCH (21:00)
[2023-04-15] MEDS ORDERED: Nicotine 21 MG PATCH TD PRN (21:08)
[2023-04-15] MEDS: Atorvastatin Calcium 10 MG TAB PO SCH (21:23)
[2023-04-15] MEDS: Famotidine 20 MG TAB PO SCH (21:23)
[2023-04-15] MEDS: Gabapentin 300 MG CAP PO SCH (21:23)
[2023-04-15] MEDS: Montelukast Sodium 10 mg Tablet PO SCH (21:24)
[2023-04-15] MEDS: traMADol HCl 50 MG TAB PO PRN (21:36)
[2023-04-16] MEDS ORDERED: Cefepime 2 GM in Sodium Chloride 0.9% 100 ML IVPB SCH (01:00)
[2023-04-16] MEDS: Ipratropium/Albuterol 3 ML NEB NEB SCH ×5 (01:50→22:23)
[2023-04-16 02:58] LABS: #Monocytes 0.2 thou/uL (0.11-0.59); #Neutrophils 8.8 thou/uL (1.40-6.50); %Basophils 0.1 % (0.0-1.0); %Lymphocytes 8.8 % (21.0-51.0); %Monocytes 1.9 % (0.0-10.0); %Neutrophils 88.6 % (42.0-75.0); Hematocrit 39.6 % (36.0-47.0); Hemoglobin 13.1 g/dL (12.0-16.0); Mean Corpuscular HGB CONC 33.1 g/dL (32.0-36.0); Mean Corpuscular Hemoglobin 32.1 pg (27.0-31.0); Platelet Count 281 10x3/uL (130-400); RBC Distribution Width 13.7 % (11.5-14.5); Red Blood Cell (RBC) Count 4.08 mill/uL (4.20-5.40); White Blood Cell (WBC) Count 9.9 10x3/uL (4.8-10.8)
[2023-04-16 03:02] LABS: Mean Corpuscular Volume 97.1 fl (78.0-98.0)
[2023-04-16 03:44] LABS: Potassium 3.7 mmol/L (3.5-5.1)
[2023-04-16 03:49] LABS: Anion Gap 15 mmol/L (10-20); BUN (Urea Nitrogen) 10 mg/dL (9.8-20.1); Calc. Creatinine Clearance 94 mL/min (70-130); Calcium 8.8 mg/dL (7.8-10.44); Carbon Dioxide 18 mmol/L (22-29); Chloride 106 mmol/L (98-107); Estimated GFR 62; Glucose 334 mg/dL (70-105); Potassium 3.6 mmol/L (3.5-5.1); Sodium 135 mmol/L (136-145)
[2023-04-16] MEDS ORDERED: Vancomycin 1 GM in Premix 1 BAG IVPB SCH (06:00)
[2023-04-16] MEDS: methylPREDNISolone Sod Succ 40 MG VIAL IVP SCH ×3 (06:25→18:03)
[2023-04-16] MEDS: traMADol HCl 50 MG TAB PO PRN ×2 (06:28→17:14)
[2023-04-16] MEDS: Arformoterol 15 MCG/2 ML NEB NEB SCH ×2 (07:49→18:57)
[2023-04-16] MEDS: Gabapentin 300 MG CAP PO SCH ×3 (08:42→21:48)
[2023-04-16] MEDS: Enoxaparin 40 MG (0.4 mL) SYRINGE SC SCH (08:43)
[2023-04-16] MEDS: Famotidine 20 MG TAB PO SCH ×2 (08:43→21:35)
[2023-04-16] MEDS: Lisinopril 20 MG TAB PO SCH (08:43)
[2023-04-16] MEDS ORDERED: Glucagon 1 MG/ML KIT IM PRN (10:36)
[2023-04-16] MEDS ORDERED: Dextrose 50% Abboject 50 ML SYRINGE SLOW IVP PRN (10:36)
[2023-04-16] MEDS ORDERED: Insulin Regular 300 UNITS/3 ML VIAL SC PRN (10:36)
[2023-04-16] MEDS ORDERED: Dextrose 5% in Water 1,000 ML IV PRN (10:36)
[2023-04-16] MEDS ORDERED: dilTIAZem 30 MG TAB PO PRN (10:40)
[2023-04-16] MEDS ORDERED: Doxycycline 100 MG CAP PO SCH (10:45)
[2023-04-16] MEDS: cefTRIAXone\\ROCEPHIN 2 GM in Sodium Chloride 0.9% 100 ML IVPB SCH (13:31)
[2023-04-16] MEDS: Insulin Regular 300 UNITS/3 ML VIAL SC PRN ×2 (14:40→18:03)
[2023-04-16] MEDS: clonazePAM 0.5 MG TAB PO PRN ×2 (14:49→21:35)
[2023-04-16] MEDS ORDERED: GUAIFENESIN SF SOLN 200 MG/10 ML UDCUP PO PRN (15:03)
[2023-04-16] MEDS: BACILLUS COAGULANS PO SCH ×2 (17:14→22:08)
[2023-04-16] MEDS ORDERED: Potassium Chloride 20 MEQ TAB PO SCH (17:30)
[2023-04-16] MEDS ORDERED: BACILLUS COAGULANS PO SCH (21:00)
[2023-04-16] MEDS: Atorvastatin Calcium 10 MG TAB PO SCH (21:35)
[2023-04-16] MEDS: Montelukast Sodium 10 mg Tablet PO SCH (21:35)
[2023-04-16] MEDS: Doxycycline 100 MG CAP PO SCH (21:35)
[2023-04-16] MEDS: guaiFENesin ER 600 MG TAB PO SCH (21:35)
[2023-04-17] MEDS: methylPREDNISolone Sod Succ 40 MG VIAL IVP SCH (00:22)
[2023-04-17] MEDS: traMADol HCl 50 MG TAB PO PRN ×3 (00:22→23:26)
[2023-04-17] MEDS: Ipratropium/Albuterol 3 ML NEB NEB SCH ×6 (02:35→22:09)
[2023-04-17 05:28] LABS: #Monocytes 0.6 thou/uL (0.11-0.59); #Neutrophils 19.9 thou/uL (1.40-6.50); %Basophils 0.1 % (0.0-1.0); %Lymphocytes 5.4 % (21.0-51.0); %Monocytes 2.7 % (0.0-10.0); %Neutrophils 91.1 % (42.0-75.0); Hematocrit 38.4 % (36.0-47.0); Hemoglobin 12.7 g/dL (12.0-16.0); Mean Corpuscular HGB CONC 33.1 g/dL (32.0-36.0); Mean Corpuscular Hemoglobin 32.2 pg (27.0-31.0); Mean Corpuscular Volume 97.2 fl (78.0-98.0); Platelet Count 303 10x3/uL (130-400); RBC Distribution Width 14.5 % (11.5-14.5); Red Blood Cell (RBC) Count 3.95 mill/uL (4.20-5.40); White Blood Cell (WBC) Count 21.8 10x3/uL (4.8-10.8)
[2023-04-17 05:46] LABS: Hemoglobin A1c 6.7 % (4.0-6.0)
[2023-04-17 06:21] LABS: Anion Gap 14 mmol/L (10-20); BUN (Urea Nitrogen) 19 mg/dL (9.8-20.1); Calc. Creatinine Clearance 96 mL/min (70-130); Calcium 9.1 mg/dL (7.8-10.44); Carbon Dioxide 22 mmol/L (22-29); Chloride 105 mmol/L (98-107); Estimated GFR 63; Glucose 135 mg/dL (70-105); Magnesium 2.2 mg/dL (1.6-2.6); Potassium 3.9 mmol/L (3.5-5.1); Sodium 137 mmol/L (136-145)
[2023-04-17] MEDS: Arformoterol 15 MCG/2 ML NEB NEB SCH ×2 (07:27→18:37)
[2023-04-17] MEDS: Lisinopril 20 MG TAB PO SCH (07:45)
[2023-04-17] MEDS: guaiFENesin ER 600 MG TAB PO SCH ×2 (07:45→19:39)
[2023-04-17] MEDS: Doxycycline 100 MG CAP PO SCH ×2 (07:46→19:37)
[2023-04-17] MEDS: Enoxaparin 40 MG (0.4 mL) SYRINGE SC SCH (07:46)
[2023-04-17] MEDS: predniSONE 20 MG TAB PO SCH ×2 (07:46→16:46)
[2023-04-17] MEDS: Famotidine 20 MG TAB PO SCH ×2 (07:46→19:37)
[2023-04-17] MEDS: Gabapentin 300 MG CAP PO SCH ×3 (07:46→19:37)
[2023-04-17] MEDS: BACILLUS COAGULANS PO SCH ×3 (07:49→19:39)
[2023-04-17] MEDS: clonazePAM 0.5 MG TAB PO PRN ×2 (07:50→20:24)
[2023-04-17] MEDS: Insulin Regular 300 UNITS/3 ML VIAL SC PRN ×2 (12:15→16:48)
[2023-04-17] MEDS: cefTRIAXone\\ROCEPHIN 2 GM in Sodium Chloride 0.9% 100 ML IVPB SCH (12:15)
[2023-04-17] MEDS: Atorvastatin Calcium 10 MG TAB PO SCH (19:37)
[2023-04-17] MEDS: Montelukast Sodium 10 mg Tablet PO SCH (19:39)
[2023-04-17] MEDS: Cholestyramine/Aspartame 4 gm Packet PO SCH (21:02)
[2023-04-18] MEDS: Ipratropium/Albuterol 3 ML NEB NEB SCH ×6 (02:36→22:35)
[2023-04-18 05:12] LABS: #Monocytes 0.8 thou/uL (0.11-0.59); #Neutrophils 11.5 thou/uL (1.40-6.50); %Basophils 0.3 % (0.0-1.0); %Eosinophils 0.1 % (0.0-10.0); %Lymphocytes 12.5 % (21.0-51.0); %Monocytes 5.5 % (0.0-10.0); %Neutrophils 80.5 % (42.0-75.0); Hematocrit 38.6 % (36.0-47.0); Hemoglobin 12.3 g/dL (12.0-16.0); Mean Corpuscular HGB CONC 31.9 g/dL (32.0-36.0); Mean Corpuscular Hemoglobin 31.1 pg (27.0-31.0); Mean Corpuscular Volume 97.5 fl (78.0-98.0); Mean Platelet Volume 8.9 fL (7.4-10.4); Platelet Count 265 10x3/uL (130-400); RBC Distribution Width 14.5 % (11.5-14.5); Red Blood Cell (RBC) Count 3.96 mill/uL (4.20-5.40); White Blood Cell (WBC) Count 14.3 10x3/uL (4.8-10.8)
[2023-04-18 05:44] LABS: Anion Gap 14 mmol/L (10-20); BUN (Urea Nitrogen) 22 mg/dL (9.8-20.1); Calc. Creatinine Clearance 109 mL/min (70-130); Calcium 8.6 mg/dL (7.8-10.44); Carbon Dioxide 21 mmol/L (22-29); Chloride 108 mmol/L (98-107); Estimated GFR 74; Glucose 238 mg/dL (70-105); Potassium 3.5 mmol/L (3.5-5.1); Sodium 139 mmol/L (136-145)
[2023-04-18] MEDS: Arformoterol 15 MCG/2 ML NEB NEB SCH ×2 (06:19→18:59)
[2023-04-18] MEDS: Insulin Regular 300 UNITS/3 ML VIAL SC PRN (06:23)
[2023-04-18] MEDS: Gabapentin 300 MG CAP PO SCH ×3 (07:54→21:20)
[2023-04-18] MEDS: Enoxaparin 40 MG (0.4 mL) SYRINGE SC SCH (07:55)
[2023-04-18] MEDS: predniSONE 20 MG TAB PO SCH ×2 (07:55→17:41)
[2023-04-18] MEDS: Doxycycline 100 MG CAP PO SCH ×2 (07:55→21:19)
[2023-04-18] MEDS: guaiFENesin ER 600 MG TAB PO SCH ×2 (07:55→21:19)
[2023-04-18] MEDS: Famotidine 20 MG TAB PO SCH ×2 (07:55→21:19)
[2023-04-18] MEDS ORDERED: Potassium Chloride 20 MEQ TAB PO SCH (08:00)
[2023-04-18] MEDS: Lisinopril 20 MG TAB PO SCH (08:47)
[2023-04-18] MEDS: BACILLUS COAGULANS PO SCH ×3 (08:48→21:26)
[2023-04-18] MEDS ORDERED: metFORMIN XR 500 MG ER.TAB PO SCH (09:00)
[2023-04-18] MEDS: Cholestyramine/Aspartame 4 gm Packet PO SCH ×2 (10:22→21:22)
[2023-04-18] MEDS: cefTRIAXone\\ROCEPHIN 2 GM in Sodium Chloride 0.9% 100 ML IVPB SCH (12:46)
[2023-04-18] MEDS: traMADol HCl 50 MG TAB PO PRN ×2 (12:54→21:21)
[2023-04-18] MEDS ORDERED: Budesonide 0.5 MG/2 ML NEB INH SCH (14:45)
[2023-04-18] MEDS: Budesonide 0.5 MG/2 ML NEB INH SCH (18:59)
[2023-04-18] MEDS: Montelukast Sodium 10 mg Tablet PO SCH (21:19)
[2023-04-18] MEDS: Atorvastatin Calcium 10 MG TAB PO SCH (21:19)
[2023-04-18] MEDS: clonazePAM 0.5 MG TAB PO PRN (21:22)
[2023-04-19] MEDS: Ipratropium/Albuterol 3 ML NEB NEB SCH ×4 (02:32→14:15)
[2023-04-19] MEDS: Budesonide 0.5 MG/2 ML NEB INH SCH (06:41)
[2023-04-19] MEDS: Arformoterol 15 MCG/2 ML NEB NEB SCH (06:41)
[2023-04-19 06:44] LABS: #Basophils 0.1 thou/uL (0.0-0.2); #Neutrophils 11.9 thou/uL (1.40-6.50); %Basophils 0.3 % (0.0-1.0); %Monocytes 6.3 % (0.0-10.0); %Neutrophils 75.9 % (42.0-75.0); Hematocrit 39.7 % (36.0-47.0); Hemoglobin 12.6 g/dL (12.0-16.0); Mean Corpuscular HGB CONC 31.7 g/dL (32.0-36.0); Mean Corpuscular Hemoglobin 30.8 pg (27.0-31.0); Mean Corpuscular Volume 97.1 fl (78.0-98.0); Platelet Count 301 10x3/uL (130-400); RBC Distribution Width 14.4 % (11.5-14.5); Red Blood Cell (RBC) Count 4.09 mill/uL (4.20-5.40); White Blood Cell (WBC) Count 15.7 10x3/uL (4.8-10.8)
[2023-04-19 07:14] LABS: Anion Gap 13 mmol/L (10-20); BUN (Urea Nitrogen) 18 mg/dL (9.8-20.1); Calc. Creatinine Clearance 117 mL/min (70-130); Calcium 8.4 mg/dL (7.8-10.44); Carbon Dioxide 23 mmol/L (22-29); Chloride 108 mmol/L (98-107); Estimated GFR 81; Glucose 134 mg/dL (70-105); Potassium 3.7 mmol/L (3.5-5.1); Sodium 140 mmol/L (136-145)
[2023-04-19] MEDS ORDERED: metFORMIN XR 500 MG ER.TAB PO SCH (08:00)
[2023-04-19] MEDS: Gabapentin 300 MG CAP PO SCH ×2 (08:27→14:43)
[2023-04-19] MEDS: Enoxaparin 40 MG (0.4 mL) SYRINGE SC SCH (08:27)
[2023-04-19] MEDS: Lisinopril 20 MG TAB PO SCH (08:29)
[2023-04-19] MEDS: predniSONE 20 MG TAB PO SCH ×2 (08:29→15:55)
[2023-04-19] MEDS: Famotidine 20 MG TAB PO SCH (08:29)
[2023-04-19] MEDS: guaiFENesin ER 600 MG TAB PO SCH (08:29)
[2023-04-19] MEDS: Doxycycline 100 MG CAP PO SCH (08:30)
[2023-04-19] MEDS: BACILLUS COAGULANS PO SCH ×2 (08:32→14:52)
[2023-04-19] MEDS: traMADol HCl 50 MG TAB PO PRN ×2 (08:39→15:54)
[2023-04-19 09:18] VITALS: BP 168/98; TEMP 98
[2023-04-19] MEDS: Cholestyramine/Aspartame 4 gm Packet PO SCH (10:16)
[2023-04-19] MEDS: cefTRIAXone\\ROCEPHIN 2 GM in Sodium Chloride 0.9% 100 ML IVPB SCH (12:53)
== END 2023-04-19 18:10 | disposition home or self-care (01) | DRG 871 ==
LOC: ERS 12:13 → 2NO 13:48 → T4-B 04-16 20:30
PROVIDERS: ADMIT Family Medicine; ATTEND Internal Medicine
DX: A41.9 Sepsis, unspecified organism (principal); J18.0 Bronchopneumonia, unspecified organism; J96.01 Acute respiratory failure with hypoxia; J44.1 Chronic obstructive pulmonary disease with (acute) exacerbation; E87.1 Hypo-osmolality and hyponatremia; Z79.899 Other long term (current) drug therapy; E78.00 Pure hypercholesterolemia, unspecified; I12.9 Hypertensive chronic kidney disease with stage 1 through stage 4 chronic kidney disease, or unspecified chronic kidney disease; N18.9 Chronic kidney disease, unspecified; F32.A Depression, unspecified; F17.210 Nicotine dependence, cigarettes, uncomplicated; F41.9 Anxiety disorder, unspecified; G89.29 Other chronic pain; M54.9 Dorsalgia, unspecified; E66.9 Obesity, unspecified; Z68.33 Body mass index [BMI] 33.0-33.9, adult; E87.6 Hypokalemia; E83.42 Hypomagnesemia; Z11.52 Encounter for screening for COVID-19
CPT/HCPCS: 0241U; 36415; 36416; 71045; 80048; 80053; 81001; 83036; 83605; 83735; 83880; 84484; 85025; 85379; 87040; 87081; 87086; 93005; 94640; 96365; 96367; 96375; J0692; J0696; J1650; J1815; J2920; J2930; J3370; J3370-JW; J3490; J7050; J7512; J7620; J7626

== ENCOUNTER 2025-01-17 16:37 | Emergency (ER) | payer OTHER | END 2025-01-17 17:10 | disposition home or self-care (01) | LOC: ERS 16:37 | DX: B37.2 Candidiasis of skin and nail (principal); E78.00 Pure hypercholesterolemia, unspecified; I12.9 Hypertensive chronic kidney disease with stage 1 through stage 4 chronic kidney disease, or unspecified chronic kidney disease; N18.9 Chronic kidney disease, unspecified; F17.210 Nicotine dependence, cigarettes, uncomplicated; Z79.899 Other long term (current) drug therapy | CPT/HCPCS: 99282 ==